=== PATIENT | male | born 1975 | race Hispanic/Latino ===

== ENCOUNTER 2018-03-22 15:14 | Emergency (ER) | payer SELFPAY ==
[2018-03-22 15:41] VITALS: TEMP 98.3
[2018-03-22] MEDS ORDERED: ONDANSETRON INJ 4 MG/2 ML VIAL IV ONE (16:01)
[2018-03-22] MEDS ORDERED: KETOROLAC TROMETHAMINE INJ 30 MG/ML VIAL ONE (16:21)
[2018-03-22] MEDS ORDERED: MORPHINE SULFATE INJ 10 MG/ML VIAL ONE (16:22)
[2018-03-22] MEDS ORDERED: SODIUM CHLORIDE 0.9% 1000ML 1,000 ML ONE (16:22)
[2018-03-22] MEDS ORDERED: LACTATED RINGERS 1,000 ML IVS ONE (16:25)
[2018-03-22] MEDS ORDERED: PROMETHAZINE HCL INJ 25 MG/ML VIAL IM ONE (16:25)
[2018-03-22] MEDS ORDERED: KETOROLAC TROMETHAMINE INJ 30 MG/ML VIAL IV ONE (16:26)
[2018-03-22] MEDS ORDERED: MORPHINE SULFATE INJ 10 MG/ML VIAL IV ONE ×2 (16:28→18:31)
--- NOTE | 2018-03-22 17:28 | ED.PDOC ---
History of Present Illness - General Chief Complaint: Abdominal Pain Stated Complaint: ABDOMINAL PAIN Time Seen by Provider: 03/22/18 16:24 Source: patient Exam Limitations: no limitations - History of Present Illness Initial Comments: Jean Vásquez 42 y/o male stated that he had stabbing lower abdominal pain radiating to both flanks yesterday lasting for about 10 minutes which went away then recurred this afternoon this time with nausea /vomiting getting more steady and intense. decided to come to er.Denies history of kidney stones in the past or any chronic medical problem. Timing/Duration: constant, yesterday, getting worse Quality: severe, stabbing Onset Location: periumbilical Radiation: generalized flank Activites at Onset: none Prior abdominal problems: none Sexual intercourse history: single partner Improving Factors: nothing Worsening Factors: nothing Associated Symptoms: other - see hpi Allergies/Adverse Reactions: Allergies NO KNOWN ALLERGY Allergy (Verified 11/12/15 12:44) Home Medications: Ambulatory Orders Ketorolac Tromethamine [Toradol Tabs] 10 mg PO TID #14 tab 03/22/18 Promethazine Tab [Phenergan Tablet] 25 mg PO .Q4H PRN #20 tab 03/22/18 Tamsulosin HCl [Flomax] 0.4 mg PO DAILY #7 cap 03/22/18 Review of Systems - Review of Systems Constitutional: States: no symptoms reported EENTM: States: no symptoms reported Respiratory: States: no symptoms reported Cardiology: States: no symptoms reported Gastrointestinal/Abdominal: States: see HPI, abdominal pain, vomiting Musculoskeletal: States: no symptoms reported Skin: States: no symptoms reported Neurological: States: no symptoms reported Endocrine: States: no symptoms reported Past Medical History (General) - Patient Medical History Hx Seizures: No Hx Stroke: No Hx Dementia: No Hx Asthma: No Hx of COPD: No Hx Cardiac Disorders: No Hx Congestive Heart Failure: No Hx Pacemaker: No Hx Hypertension: No Hx Thyroid Disease: No Hx Diabetes: No Hx Gastroesophageal Reflux: No Hx Renal Disease: No Hx Cancer: No Hx of HIV: No Hx Hepatitis C: No Hx MRSA: No Surgical History: no surgical history - Vaccination History Hx Tetanus, Diphtheria Vaccination: No Hx Influenza Vaccination: No Hx Pneumococcal Vaccination: No - Social History Hx Tobacco Use: No Hx Chewing Tobacco Use: No Hx Alcohol Use: Yes Hx Substance Use: No Hx Substance Use Treatment: No Hx Depression: No Hx Physical Abuse: No Hx Emotional Abuse: No Hx Suspected Abuse: No Family Medical History - Family History Father Family History: Unknown Physical Exam - Physical Exam General Appearance: Alert, Other - in pain Eyes, Ears, Nose, Throat Exam: normal ENT inspection Neck: non-tender, full range of motion, supple, normal inspection Cardiovascular/Respiratory: regular rate, rhythm, no M/R/G, normal peripheral pulses, normal breath sounds Gastrointestinal/Abdominal: normal bowel sounds, non tender, soft, no organomegaly Male Genital Exam: normal genitalia Back Exam: normal inspection, CVA tenderness (R), CVA tenderness (L) Extremity: no pedal edema, no calf tenderness Neurologic: no motor/sensory deficits, alert, oriented x 3 Skin Exam: normal color, warm/dry Progress - Progress Progress: 03/22/18 17:30 Vital Signs - 8 hr 03/22/18 03/22/18 15:20 16:21 Temperature 98.3 F Pulse Rate [ 75 65 left brachial] Respiratory 20 20 Rate Blood Pressure 162/85 135/77 [left brachial] O2 Sat by Pulse 95 96 Oximetry - Results/Orders Results/Orders: 03/22/18 17:00 Abdoment/Pelvis w/o Contrast [CT] Stat Laboratory Results - last 24 hr 03/22/18 03/22/18 03/22/18 15:45 15:59 15:59 WBC 5.9 RBC 5.47 Hgb 16.5 Hct 49.0 MCV 89.7 MCH 30.1 MCHC 33.6 RDW 13.0 Plt Count 289 MPV 8.3 Absolute Neuts (auto) 2.10 Absolute Lymphs (auto) 2.90 Absolute Monos (auto) 0.60 Absolute Eos (auto) 0.30 Absolute Basos (auto) 0.10 Neutrophils % 35.5 L Lymphocytes % 48.8 Monocytes % 9.9 H Eosinophils % 4.9 Basophils % 0.9 PT INR PTT (SP) Sodium 139 Potassium 3.8 Chloride 102 Carbon Dioxide 27 Anion Gap 13.8 BUN 18 Creatinine 1.09 BUN/Creatinine Ratio 16.5 Random Glucose 114 H Serum Osmolality 280.3 Calcium 9.5 Magnesium Total Bilirubin 0.5 AST 28 ALT 53 Alkaline Phosphatase 87 Creatine Kinase 148 CK-MB (CK-2) 2.8 CK-MB (CK-2) % Not Reportable Troponin I < 0.02 Serum Total Protein 7.7 Albumin 4.6 Globulin 3.1 Albumin/Globulin Ratio 1.5 Lipase Urine Color Yellow Urine Appearance Sl cloudy Urine pH 5.0 Ur Specific [place] >= 1.030 Urine Protein 100 H Urine Glucose (UA) Negative Urine Ketones Negative Urine Blood Large H Urine Nitrite Negative Urine Bilirubin Small H Urine Urobilinogen 0.2 Ur Leukocyte Esterase Negative Urine RBC 30-40 H Urine WBC 0 Ur Epithelial Cells 0 Urine Bacteria 0 Urine Opiates Screen Urine Barbiturates Ur Phencyclidine Scrn U Amphetamin/Meth Scrn U Benzodiazepines Scrn U Cocaine Metab Screen U Cannabinoids Screen 03/22/18 03/22/18 03/22/18 16:25 16:25 16:25 WBC RBC Hgb Hct MCV MCH MCHC RDW Plt Count MPV Absolute Neuts (auto) Absolute Lymphs (auto) Absolute Monos (auto) Absolute Eos (auto) Absolute Basos (auto) Neutrophils % Lymphocytes % Monocytes % Eosinophils % Basophils % PT 10.0 INR 1.00 PTT (SP) 24.1 Sodium Potassium Chloride Carbon Dioxide Anion Gap BUN Creatinine BUN/Creatinine Ratio Random Glucose Serum Osmolality Calcium Magnesium 1.9 Total Bilirubin AST ALT Alkaline Phosphatase Creatine Kinase CK-MB (CK-2) CK-MB (CK-2) % Troponin I Serum Total Protein Albumin Globulin Albumin/Globulin Ratio Lipase Urine Color Urine Appearance Urine pH Ur Specific [place] Urine Protein Urine Glucose (UA) Urine Ketones Urine Blood Urine Nitrite Urine Bilirubin Urine Urobilinogen Ur Leukocyte Esterase Urine RBC Urine WBC Ur Epithelial Cells Urine Bacteria Urine Opiates Screen Negative Urine Barbiturates Negative Ur Phencyclidine Scrn Negative U Amphetamin/Meth Scrn Negative U Benzodiazepines Scrn Negative U Cocaine Metab Screen Negative U Cannabinoids Screen Negative 03/22/18 16:27 WBC RBC Hgb Hct MCV MCH MCHC RDW Plt Count MPV Absolute Neuts (auto) Absolute Lymphs (auto) Absolute Monos (auto) Absolute Eos (auto) Absolute Basos (auto) Neutrophils % Lymphocytes % Monocytes % Eosinophils % Basophils % PT INR PTT (SP) Sodium Potassium Chloride Carbon Dioxide Anion Gap BUN Creatinine BUN/Creatinine Ratio Random Glucose Serum Osmolality Calcium Magnesium Total Bilirubin AST ALT Alkaline Phosphatase Creatine Kinase CK-MB (CK-2) CK-MB (CK-2) % Troponin I Serum Total Protein Albumin Globulin Albumin/Globulin Ratio Lipase 27 Urine Color Urine Appearance Urine pH Ur Specific [place] Urine Protein Urine Glucose (UA) Urine Ketones Urine Blood Urine Nitrite Urine Bilirubin Urine Urobilinogen Ur Leukocyte Esterase Urine RBC Urine WBC Ur Epithelial Cells Urine Bacteria Urine Opiates Screen Urine Barbiturates Ur Phencyclidine Scrn U Amphetamin/Meth Scrn U Benzodiazepines Scrn U Cocaine Metab Screen U Cannabinoids Screen - EKG/XRAY/CT CT Ordered: Yes - abd/p-left ureteral calculus Departure - Departure Clinical Impression: Left ureteral calculus, Bilateral flank pain Abdominal pain Qualifiers: Abdominal location: lower abdomen, unspecified Qualified Code(s): R10.30 - Lower abdominal pain, unspecified Time of Disposition: 18:28 Disposition: Discharge to Home or Self Care Condition: Fair Departure Forms: ED Discharge - Pt. Copy, Patient Portal Self Enrollment Instructions: Kidney Stones (DC), Kidney Stones in Adults, How to Strain Your Urine, Renal Colic (DC) Diet: other - drink extra fluids preferably water Prescriptions: Ketorolac Tromethamine [Toradol Tabs] 10 mg PO TID #14 tab Promethazine Tab [Phenergan Tablet] 25 mg PO .Q4H PRN #20 tab PRN Reason: Nausea Tamsulosin HCl [Flomax] 0.4 mg PO DAILY #7 cap Home Medications: Ambulatory Orders Ketorolac Tromethamine [Toradol Tabs] 10 mg PO TID #14 tab 03/22/18 Promethazine Tab [Phenergan Tablet] 25 mg PO .Q4H PRN #20 tab 03/22/18 Tamsulosin HCl [Flomax] 0.4 mg PO DAILY #7 cap 03/22/18 Additional Instructions: Return to ER as needed;Need to sign up with primary MD [phone] [facility] for referral to urologist as needed;May take ALEVE (over the counter ) 1-2 tablets am/pm for pain;Continue with home meds tylenol 3 - 1-2 tabs every 6 hours for pain
--- NOTE | 2018-03-22 17:54 | CT ---
EXAM DESCRIPTION: Abdoment/Pelvis w/o Contrast CLINICAL HISTORY:42 years Male, ABDOMINAL PAIN Comparison: None TECHNIQUE: Contiguous axial images of the abdomen and pelvis were obtained followed by reconstruction images. This exam was performed according to our departmental dose-optimization program, which includes automated exposure control, adjustment of the mA and/or kV according to patient size and/or use of iterative reconstruction technique. FINDINGS: Lung bases: Lung bases are clear. Heart: Visualized heart is within normal limits in size. Liver:Unremarkable. No focal liver lesion. Gallbladder:Unremarkable. No gallstones. No gallbladder wall thickening or pericholecystic fluid. Spleen:Unremarkable Pancreas: Pancreas is unremarkable. Adrenal glands:Within normal limits. Kidneys/ureters:6 mm calculus in the left ureter with resultant mild hydroureteronephrosis. Bladder:Unremarkable. Pelvic organs: No acute abnormality Vascular structures: within normal limits Peritoneum: No free fluid. Lymph nodes: No abnormal lymph nodes. Stomach/small bowel/colon: Stomach is unremarkable. Small bowel is unremarkable. Colon is unremarkable. Appendix: Appendix seen within normal limits. Bones: No acute osseous abnormality. Soft tissues: Small fat containing umbilical and left inguinal hernia.. IMPRESSION: 6 mm calculus in the left ureter with resultant mild hydroureteronephrosis. Electronically signed by: Kin Arzate MD 03/22/2018 5:53 PM CDT
[2018-03-22] MEDS ORDERED: TAMSULOSIN 0.4 MG CAP PO ONE (18:13)
[2018-03-22] MEDS ORDERED: HYDROCOD/APAP 10/325 (ER DISP) # 3 tablets PO ONE (18:38)
[2018-03-22 18:58] VITALS: BP 142/84; O2SAT 96
== END 2018-03-22 18:55 | disposition home or self-care (01) ==
LOC: ER 15:14
DX: N13.2 Hydronephrosis with renal and ureteral calculous obstruction (principal)
CPT/HCPCS: 36415; 74176; 80053; 80307; 81001; 82550; 82553; 83690; 83735; 84484; 85025; 85610; 85730; J1885; J2270; J2405; J7030; J7120